=== PATIENT | female | born 1960 | race African-American/Black ===

== ENCOUNTER 2021-05-17 19:55 | Emergency (ER) | payer MEDICARE, OTHER ==
[~2021-05-17] VITALS: Ht 149.9 cm; Wt 115.7 kg
[2021-05-17 19:59] VITALS: BP 168/79
[2021-05-17 21:03] LABS: Urine Bacteria NONE SEEN /hpf (None Seen); Urine Blood 2+ /uL (Negative); Urine Specific Gravity 1.018 (1.001-1.035); Urine WBC 1 /hpf (0 - 5)
[2021-05-17 21:18] LABS: Basophils # (auto) 0.1 10 ^3/uL (0-0.2); Eosinophils # (auto) 0.1 10 ^3/uL (0-0.8); Eosinophils % (auto) 1.5 % (0.0-7.0); Monocytes # (auto) 0.5 10 ^3/uL (0-1.3); White Blood Cell 8.8 10^3/uL (4.4-10.8)
[2021-05-17 21:20] LABS: Basophils % (auto) 0.7 % (0.0-2.0); Hemoglobin 12.9 g/dL (12.2-16.2); Lymphocytes # (auto) 4.8 10 ^3/uL (0.4-5.4); Lymphocytes % (auto) 54.3 % (10.0-50.0); Mean Corpuscular Hemoglobin 26.4 pg (28.0-32.0); Mean Corpuscular Hgb Conc. 32.9 g/dL (32.0-36.0); Mean Corpuscular Volume 80.2 fL (80.0-100.0); Monocytes % (auto) 5.9 % (0.0-12.0); Neutrophils # (auto) 3.3 10 ^3/uL (1.6-8.6); Neutrophils % (auto) 37.6 % (37.0-80.0); Nucleated Red Blood Cells % 0.2 %; Red Blood Cells 4.87 10^6/uL (4.0-5.20); Red Cell Distribution Width 13.9 % (11.8-14.3)
[2021-05-17 21:32] LABS: Albumin 3.9 g/dL (3.4-5.0); Calcium 9.4 mg/dL (8.5-10.1); Potassium 3.3 mmol/L (3.5-5.1)
[2021-05-17 21:39] LABS: BUN/Creatinine Ratio 10.1; Bilirubin, Total 0.3 mg/dL (0.2-1.0); Total Protein 7.8 g/dL (6.4-8.2)
[2021-05-17] MEDS ORDERED: SODIUM CHLORIDE 0.9% 500 ML IV ONE (23:00)
[2021-05-17] MEDS ORDERED: HYDROcodone-ACET 5/325MG TAB PO ONE (23:00)
[2021-05-17] MEDS ORDERED: HYDR-4902 PO (23:02)
== END 2021-05-17 23:50 | disposition home or self-care (01) ==
LOC: ER 19:59
DX: R16.0 Hepatomegaly, not elsewhere classified (principal); R10.31 Right lower quadrant pain; Z90.49 Acquired absence of other specified parts of digestive tract; E78.5 Hyperlipidemia, unspecified; I10 Essential (primary) hypertension
CPT/HCPCS: 36415; 74176; 80053; 81001; 85025

== ENCOUNTER 2021-12-28 01:20 | Emergency (ER) | payer MEDICARE, MEDICAID, OTHER ==
[~2021-12-28] VITALS: Ht 149.9 cm; Wt 113.4 kg
[~2021-12-28 01:20] MED LIST: HYDR-4902 PO
[2021-12-28 05:31] VITALS: BP 161/90
[2021-12-28] MEDS ORDERED: IBUP800T26 PO (05:55)
[2021-12-28] MEDS ORDERED: BACDST PO (05:55)
== END 2021-12-28 06:34 | disposition home or self-care (01) ==
LOC: ER 01:25
DX: L02.214 Cutaneous abscess of groin (principal); L73.1 Pseudofolliculitis barbae; E78.5 Hyperlipidemia, unspecified; I10 Essential (primary) hypertension; Z90.49 Acquired absence of other specified parts of digestive tract

== ENCOUNTER 2023-02-26 06:25 | Emergency (ER) | payer MEDICARE, MEDICAID ==
[~2023-02-26] VITALS: Ht 149.9 cm; Wt 113.5 kg
[~2023-02-26 06:25] MED LIST changes: +BACDST PO; +IBUP-1455 PO
[2023-02-26 07:51] VITALS: BP 154/78; PULSE 99; RESP 18; TEMP 97.3; O2SAT 98
[2023-02-26] MEDS ORDERED: [UNRECOGNIZED DRUG - CODE] OR (08:17)
[2023-02-26] MEDS ORDERED: BENZ100C97 PO (08:17)
[2023-02-26] MEDS ORDERED: SIMV20TA20 PO (08:17)
[2023-02-26] MEDS ORDERED: LOSA50TA46 PO (08:17)
== END 2023-02-26 08:26 | disposition home or self-care (01) ==
LOC: ER 06:25
DX: J40 Bronchitis, not specified as acute or chronic (principal); E78.5 Hyperlipidemia, unspecified; I10 Essential (primary) hypertension; Z90.49 Acquired absence of other specified parts of digestive tract

== ENCOUNTER 2023-03-06 23:27 | Inpatient (IN) | payer MEDICARE, MEDICAID ==
[~2023-03-06] VITALS: Ht 149.9 cm; Wt 115.0 kg
[~2023-03-06 23:27] MED LIST changes: +BENZ100C97 PO; +LOSA50TA46 PO; +SIMV20TA20 PO; +[UNRECOGNIZED DRUG - CODE] OR
[2023-03-07] MEDS ORDERED: ACETAMINOPHEN 325 MG TAB PO ONE (00:15)
[2023-03-07 00:52] LABS: Rapid Influenza A Negative (Negative); Rapid Influenza B Negative (Negative)
[2023-03-07 00:53] LABS: COVID19 ANTIGEN SOFIA FIA POSITIVE (NEGATIVE)
[2023-03-07 00:54] LABS: Urine Bacteria NONE SEEN /hpf (None Seen); Urine Blood 2+ /uL (Negative); Urine Clarity Clear (Clear); Urine Color Colorless (Yellow); Urine Protein, UAD Negative (Negative); Urine Specific Gravity 1.005 (1.001-1.035); Urine Urobilinogen Normal (Negative); Urine WBC 2 /hpf (0 - 5); Urine pH 6.5 (5.0-8.0)
[2023-03-07] MEDS ORDERED: DexAMETHasone SOD PHOS 10MG/1ML VIAL INJ IV ONE (01:00)
[2023-03-07] MEDS ORDERED: LACTATED RINGER'S 2,000 ML IV ONE (01:00)
[2023-03-07 01:06] LABS: Basophils # (auto) 0.1 10 ^3/uL (0-0.2); Basophils % (auto) 0.6 % (0.0-2.0); Eosinophils # (auto) 0.1 10 ^3/uL (0-0.8); Hemoglobin 12.8 g/dL (12.2-16.2); Monocytes # (auto) 0.6 10 ^3/uL (0-1.3); Neutrophils # (auto) 5.9 10 ^3/uL (1.6-8.6); White Blood Cell 8.7 10^3/uL (4.4-10.8)
[2023-03-07 01:09] LABS: Mean Corpuscular Hemoglobin 26.7 pg (28.0-32.0); Mean Corpuscular Hgb Conc. 32.8 g/dL (32.0-36.0); Mean Corpuscular Volume 81.3 fL (80.0-100.0); Monocytes % (auto) 6.8 % (0.0-12.0); Neutrophils % (auto) 68.6 % (37.0-80.0); Red Cell Distribution Width 14.3 % (11.8-14.3)
[2023-03-07 01:25] LABS: Alanine Aminotransferase 22 U/L (7-40); Albumin 4.7 g/dL (3.2-4.8); Alkaline Phosphatase 90 U/L (46-116); Anion Gap 7 (5-15); Aspartate Aminotransferase 19 U/L (13-40); BUN/Creatinine Ratio 6.7 (10.0-20.0); Bilirubin, Total 0.2 mg/dL (0.2-1.0); Blood Urea Nitrogen 5 mg/dL (9-23); Calcium 9.3 mg/dL (8.7-10.4); Carbon Dioxide 27 mmol/L (20-30); Chloride 104 mmol/L (98-107); Glucose 112 mg/dL (74-106); Potassium 3.4 mmol/L (3.5-5.1); Sodium 138 mmol/L (136-145); Total Protein 8.2 g/dL (5.7-8.2)
[2023-03-07 03:14] VITALS: PULSE 110; RESP 19; O2SAT 98
[2023-03-07] MEDS ORDERED: MORPHINE SULFATE INJ 2 MG/ml SYRG IV PRN (08:45)
[2023-03-07] MEDS ORDERED: REMDESIVIR PER PHARMACY 0 ML IV SCH (08:45)
[2023-03-07] MEDS ORDERED: BENZONATATE 100 MG PO PRN (08:45)
[2023-03-07] MEDS ORDERED: NITROGLYCERIN 0.4 MG SL TAB SL PRN (08:45)
[2023-03-07] MEDS ORDERED: ALBUTEROL SULF HFA 90MCG INH 200DOSE IN PRN (08:45)
[2023-03-07] MEDS ORDERED: POTASSIUM EFFERVESENT TAB 25 MEQ PO ONE (08:45)
[2023-03-07] MEDS ORDERED: guaiFENesin-DM 100/10mg/5ml SYR PO PRN (09:15)
[2023-03-07] MEDS: SODIUM CHLORIDE 0.9% 1,000 ML IV SCH ×2 (09:32→22:05)
[2023-03-07 09:35] LABS: Basophils # (auto) 0 10 ^3/uL (0-0.2); Eosinophils # (auto) 0 10 ^3/uL (0-0.8); Mean Corpuscular Hemoglobin 26.9 pg (28.0-32.0); Monocytes # (auto) 0.1 10 ^3/uL (0-1.3); Red Blood Cells 4.82 10^6/uL (4.0-5.20)
[2023-03-07 09:37] LABS: Basophils % (auto) 0.3 % (0.0-2.0); Hematocrit 39.3 % (36.0-46.0); Hemoglobin 12.9 g/dL (12.2-16.2); Lymphocytes % (auto) 8.8 % (10.0-50.0); Mean Corpuscular Hgb Conc. 32.9 g/dL (32.0-36.0); Mean Corpuscular Volume 81.7 fL (80.0-100.0); Monocytes % (auto) 1.1 % (0.0-12.0); Neutrophils # (auto) 10.3 10 ^3/uL (1.6-8.6); Neutrophils % (auto) 89.8 % (37.0-80.0); White Blood Cell 11.5 10^3/uL (4.4-10.8)
[2023-03-07] MEDS: ENOXAPARIN SOD 60 MG/0.6 ML SYRINGE SC SCH ×2 (09:37→22:05)
[2023-03-07] MEDS: ZINC SULFATE 220mg CAP or TAB PO SCH (09:38)
[2023-03-07] MEDS: LOSARTAN POTASSIUM 50 MG TAB PO SCH (09:44)
[2023-03-07] MEDS ORDERED: CHOLECALCIFEROL (VITD3) 2,000 UNIT CAP/TAB PO SCH (10:00)
[2023-03-07] MEDS: BUDESONIDE (INHALATION) 180 MCG IH IN SCH ×2 (10:00→21:40)
[2023-03-07] MEDS ORDERED: ASCORBIC ACID 1,000 MG TAB PO SCH (10:00)
[2023-03-07] MEDS ORDERED: DexAMETHasone SOD PHOS 10MG/1ML VIAL INJ IV SCH (10:00)
[2023-03-07 10:07] LABS: Alanine Aminotransferase 23 U/L (7-40); Albumin 4.8 g/dL (3.2-4.8); Alkaline Phosphatase 83 U/L (46-116); Anion Gap 9 (5-15); Aspartate Aminotransferase 24 U/L (13-40); Calcium 9.6 mg/dL (8.5-10.1); Carbon Dioxide 25 mmol/L (20-30); Chloride 103 mmol/L (98-107); Cholesterol 165 mg/dL (< 200); Glucose 138 mg/dL (74-106); LDL Cholesterol 112 mg/dL (< 100); Sodium 137 mmol/L (136-145); Triglycerides 70 mg/dL (< 150)
[2023-03-07 10:08] LABS: Bilirubin, Total 0.4 mg/dL (0.2-1.0); HDL Cholesterol 46 mg/dL (40-59); Total Protein 8.4 g/dL (5.7-8.2)
[2023-03-07 10:12] LABS: BUN/Creatinine Ratio 7.5 (10.0-20.0); Blood Urea Nitrogen < 5 mg/dL (9-23); Lactic Acid w/Reflex 2.4 mmol/L (0.4-2.0)
[2023-03-07 10:15] LABS: CRP High Sensitivity 2.57 mg/dL (<1.0)
[2023-03-07 10:43] LABS: Thyroid Stimulating Hormone 0.35 uIU/mL (0.358-3.74)
[2023-03-07 10:57] LABS: Magnesium 1.9 mg/dL (1.6-2.6)
[2023-03-07] MEDS ORDERED: REMDESIVIR 200 MG in NS 210ml LOADING DOSE ADULT IV ONE ×2 (12:00→13:00)
[2023-03-07] MEDS ORDERED: SODIUM CHLORIDE 0.9% 2,000 ML IV ONE (12:15)
[2023-03-07] MEDS: ACETAMINOPHEN 500 MG TAB PO PRN (12:49)
[2023-03-07] MEDS ORDERED: ATORVASTATIN 20 MG TAB PO SCH (18:00)
[2023-03-07 19:25] VITALS: PULSE 91; RESP 20; O2SAT 97
[2023-03-07 20:57] LABS: Urine Bacteria NONE SEEN /hpf (None Seen); Urine Blood 2+ /uL (Negative); Urine Clarity Clear (Clear); Urine Color Colorless (Yellow); Urine Protein, UAD Negative (Negative); Urine Specific Gravity 1.007 (1.001-1.035); Urine Urobilinogen Normal (Negative); Urine WBC 1 /hpf (0 - 5)
[2023-03-07 21:40] VITALS: PULSE 88; RESP 18; O2SAT 98
[2023-03-07 21:42] VITALS: O2SAT 98
[2023-03-08 03:16] VITALS: BP 121/73; PULSE 75; RESP 20; TEMP 98; O2SAT 94
[2023-03-08 05:16] LABS: Basophils # (auto) 0 10 ^3/uL (0-0.2); Eosinophils # (auto) 0 10 ^3/uL (0-0.8); Hemoglobin 11.5 g/dL (12.2-16.2); Lymphocytes # (auto) 1.7 10 ^3/uL (0.4-5.4)
[2023-03-08 05:19] LABS: Basophils % (auto) 0.2 % (0.0-2.0); Hematocrit 35.2 % (36.0-46.0); Lymphocytes % (auto) 18.6 % (10.0-50.0); Mean Corpuscular Hemoglobin 26.6 pg (28.0-32.0); Mean Corpuscular Hgb Conc. 32.8 g/dL (32.0-36.0); Mean Corpuscular Volume 81.2 fL (80.0-100.0); Monocytes # (auto) 0.7 10 ^3/uL (0-1.3); Monocytes % (auto) 8.2 % (0.0-12.0); Neutrophils # (auto) 6.6 10 ^3/uL (1.6-8.6); Red Blood Cells 4.33 10^6/uL (4.0-5.20); Red Cell Distribution Width 14.3 % (11.8-14.3)
[2023-03-08 05:44] LABS: Alanine Aminotransferase 22 U/L (7-40); Albumin 4.2 g/dL (3.2-4.8); Alkaline Phosphatase 70 U/L (46-116); Anion Gap 9 (5-15); Aspartate Aminotransferase 17 U/L (13-40); BUN/Creatinine Ratio 13.6 (10.0-20.0); Bilirubin, Total 0.2 mg/dL (0.2-1.0); Blood Urea Nitrogen 9 mg/dL (9-23); Calcium 8.9 mg/dL (8.7-10.4); Carbon Dioxide 25 mmol/L (20-30); Chloride 106 mmol/L (98-107); Glucose 116 mg/dL (74-106); Potassium 3.8 mmol/L (3.5-5.1); Sodium 140 mmol/L (136-145); Total Protein 7.3 g/dL (5.7-8.2)
[2023-03-08 07:40] VITALS: RESP 20; O2SAT 97
[2023-03-08] MEDS: ACETAMINOPHEN 500 MG TAB PO PRN (08:31)
[2023-03-08] MEDS ORDERED: ACETAMINOPHEN 500 MG TAB PO PRN (10:45)
[2023-03-08] MEDS ORDERED: ENOXAPARIN SOD 60 MG/0.6 ML SYRINGE SC SCH (11:09)
[2023-03-08 11:12] LABS: Free T3 2.05 pg/mL (2.3-4.2); Free T4 (Free Thyroxine) 0.79 ng/dL (0.89-1.76)
[2023-03-08] MEDS: LOSARTAN POTASSIUM 50 MG TAB PO SCH (11:12)
[2023-03-08] MEDS: ZINC SULFATE 220mg CAP or TAB PO SCH (11:13)
[2023-03-08] MEDS ORDERED: amLODIPine BESYLATE 5 MG TAB PO ONE (11:15)
[2023-03-08 12:00] VITALS: BP 120/76; PULSE 88; RESP 22
[2023-03-08 12:28] VITALS: O2SAT 97
[2023-03-08] MEDS ORDERED: REMDESIVIR 100mg 100 MG in SODIUM CHL 0.9% 230 ML IV SCH ×4 (15:00)
[2023-03-08] MEDS ORDERED: ATORVASTATIN 20 MG TAB PO SCH (18:00)
[2023-03-09] MEDS ORDERED: ASCORBIC ACID 500 MG TAB PO SCH (10:00)
[2023-03-09] MEDS ORDERED: amLODIPine BESYLATE 5 MG TAB PO SCH (10:00)
[2023-03-09] MEDS ORDERED: ENOXAPARIN SOD 60 MG/0.6 ML SYRINGE SC ONE (10:00)
[2023-03-09] MEDS ORDERED: CHOLECALCIFEROL (VITD3) 1,000UNIT=25mCg TAB PO SCH (10:00)
== END 2023-03-08 14:10 | disposition home or self-care (01) | DRG 178 ==
LOC: ER 23:27 → TELE 03-07 08:35
PROVIDERS: ADMIT Internal Medicine Pulmonary Disease; ATTEND Student in an Organized Health Care Education/Training Program
PROC: XW033E5 Introduction of Remdesivir Anti-infective into Peripheral Vein, Percutaneous Approach, New Technology Group 5 (ICD-10-PCS; principal; 2023-03-07)
DX: U07.1 COVID-19 (principal); Z68.43 Body mass index [BMI] 50.0-59.9, adult; E87.6 Hypokalemia; E66.01 Morbid (severe) obesity due to excess calories; E78.5 Hyperlipidemia, unspecified; R73.9 Hyperglycemia, unspecified; M19.90 Unspecified osteoarthritis, unspecified site; F32.A Depression, unspecified; F41.9 Anxiety disorder, unspecified; I10 Essential (primary) hypertension; Z90.49 Acquired absence of other specified parts of digestive tract; Z71.3 Dietary counseling and surveillance; Z23 Encounter for immunization
CPT/HCPCS: 36415; 71045; 71046; 80053; 80061; 81001; 82306; 82728; 83036; 83605; 83615; 83735; 84439; 84443; 84481; 84484; 85025; 85379; 86141; 87040; 87426; 87804; 93005; 94640; G0378; J1100

== ENCOUNTER 2023-03-28 07:48 | Emergency (ER) | payer MEDICARE, MEDICAID ==
[~2023-03-28] VITALS: Ht 149.9 cm; Wt 115.0 kg
[2023-03-28 08:31] VITALS: BP 141/89; PULSE 89; RESP 18; TEMP 97.6; O2SAT 97
[2023-03-28] MEDS ORDERED: LOSA50TA46 PO (08:37)
[2023-03-28] MEDS ORDERED: IBUP-1456 PO (08:37)
== END 2023-03-28 08:53 | disposition home or self-care (01) ==
LOC: ER 07:48
DX: I10 Essential (primary) hypertension (principal); E78.5 Hyperlipidemia, unspecified; Z76.0 Encounter for issue of repeat prescription; Z90.49 Acquired absence of other specified parts of digestive tract; Z79.1 Long term (current) use of non-steroidal anti-inflammatories (NSAID); Z79.899 Other long term (current) drug therapy

== ENCOUNTER 2023-04-30 07:54 | Emergency (ER) | payer MEDICARE, MEDICAID ==
[~2023-04-30] VITALS: Ht 149.9 cm; Wt 114.2 kg
[~2023-04-30 07:54] MED LIST changes: +IBUP-1456 PO
[2023-04-30] MEDS ORDERED: LOSA50TA46 PO (09:18)
[2023-04-30] MEDS ORDERED: IBUP1TAB5 PO (09:18)
[2023-04-30 09:58] VITALS: BP 127/79; PULSE 100; RESP 18; TEMP 97; O2SAT 100
== END 2023-04-30 10:00 | disposition home or self-care (01) ==
LOC: ER 07:54
DX: I10 Essential (primary) hypertension (principal); E78.5 Hyperlipidemia, unspecified; Z76.0 Encounter for issue of repeat prescription; Z90.49 Acquired absence of other specified parts of digestive tract

== ENCOUNTER 2023-07-03 07:26 | Emergency (ER) | payer MEDICARE, MEDICAID ==
[~2023-07-03] VITALS: Ht 167.6 cm; Wt 83.2 kg
[~2023-07-03 07:26] MED LIST changes: +IBUP1TAB5 PO
[2023-07-03 07:49] VITALS: BP 157/74; PULSE 75; RESP 18; TEMP 97.7; O2SAT 98
[2023-07-03] MEDS ORDERED: IBUP-1456 PO (07:59)
[2023-07-03] MEDS ORDERED: SIMV20TA20 PO (07:59)
[2023-07-03] MEDS ORDERED: LOSA50TA46 PO (07:59)
== END 2023-07-03 08:06 | disposition home or self-care (01) ==
LOC: ER 07:26
DX: I10 Essential (primary) hypertension (principal); E78.5 Hyperlipidemia, unspecified; Z76.0 Encounter for issue of repeat prescription; Z90.49 Acquired absence of other specified parts of digestive tract

== ENCOUNTER 2024-04-24 06:39 | Emergency (ER) | payer MEDICARE, MEDICAID ==
[~2024-04-24] VITALS: Ht 149.9 cm; Wt 118.1 kg
[~2024-04-24 06:39] MED LIST changes: +LOSA-534 PO; -LOSA50TA46 PO
--- NOTE | 2024-04-24 06:52 | ED.PDOC ---
SOB-HPI HPI Comments 63 YEAR OLD FEMALE PRESENTS TO THE ED WITH CHIEF COMPLAINT OF FLU-LIKE ILLNESS. PATIENT REPORTS THAT SHE HAS BEEN EXPERIENCING A PRODUCTIVE YELLOW COUGH FOR WITH ASSOCIATED NASAL CONGESTION AND SORE THROAT FOR THE PAST 6 DAYS. PATIENT DENIES ANY FEVER, CHILLS, HEADACHE, CHEST PAIN, SOB, OR N/V/D. Chief Complaint: Flu like Time Seen by MD: 06:49 Primary Care Provider: NONE Reviewed notes: Nurses Notes, Medications, Allergies Information Source: Patient Mode of Arrival: Ambulatory Severity: Moderate Timing: Days Duration: Since onset Context: At Rest PE Risk Factors: None History of: None Prehospital treatment: None Modifying Factors: Nothing Associated Signs and Symptoms: Cough, Nasal Congestion, Sore Throat If cough with SOB: Productive, Yellow Past Medical History PAST MEDICAL HISTORY: Anxiety, Arthritis, Depression, Gallstones, High Lipids, HTN Surgical History: Cholecystectomy, Hernia Repair SEWER HAND History: No Pertinent SEWER HAND History Family History Family History: Reviewed,noncontributory to illness, No family hx of Cancer, No family hx of DM, No family hx of Heart jasson, No family hx of HTN, No family hx ofKidney jasson, No family hx of Liver jasson, No family hx of Lung jasson, No family hx of Stroke Social History Smoker: Non-Smoker Alcohol: Denies ETOH Use Drugs: Denies Drug Use Lives In: Home Constitutional: denies: chills, diaphoresis, fatigue, fever, malaise, sweats, weakness, others EENTM: reports: nose congestion, throat pain, throat swelling; denies: blurred vision, double vision, ear bleeding, ear discharge, ear drainage, ear pain, ear ringing, eye pain, eye redness, hearing loss, mouth pain, mouth swelling, nasal discharge, nose bleeding, nose pain, photophobia, tearing, voice changes, others Respiratory: reports: cough; denies: hemoptysis, orthopnea, SOB at rest, shortness of breath, SOB with excertion, stridor, wheezing, others Cardiovascular: denies: chest pain, dizzy spells, diaphoresis, Dyspnea on exertion, edema, irregular heart beat, left arm pain, lightheadedness, palpitations, PND, syncope, others Gastrointestinal: denies: abdomen distended, abdominal pain, blood streaked bowels, constipated, diarrhea, dysphagia, difficulty swallowing, hematemesis, melena, nausea, poor appetite, poor fluid intake, rectal bleeding, rectal pain, vomiting, others Genitourinary: denies: abnormal vagina bleeding, burning, dyspareunia, dysuria, flank pain, frequency, hematuria, incontinence, pain, , vagina discharge, urgency, others Neurological: denies: dizziness, fainting, headache, left sided numbness, left sided weakness, numbness, paresthesia, pre-existing deficit, right sided numbness, right sided weakness, seizure, speech problems, tingling, tremors, weakness, others Musculoskeletal: denies: back pain, gout, joint pain, joint swelling, muscle pain, muscle stiffness, neck pain, others Integumetry: denies: bruises, change in color, change in hair/nails, dryness, laceration, lesions, lumps, rash, wounds, others Allergic/Immunocompromised: denies: Difficulty Healing, Frequent Infections, Hives, Itching, others Hematologic/Lymphatic: denies: anemia, blood clots, easy bleeding, easy bruising, swollen glands, others Endocrine: denies: excessive hunger, excessive sweating, excessive thirst, excessive urination, flushing, intolerance to cold, intolerance to heat, unexplained weight gain, unexplained weight loss, others Psychiatric: denies: anxiety, bipolar disorder, depression, hopeless, panic disorder, schizophrenia, sleepless, suicidal, others All Other Systems: Reviewed and Negative Physical Exam General Appearance: No Apparent Distress, Normal HEENT: PERRL/EOMI, Pharyngeal Erythema (TONSILLAR SWELLING, NO EXUDATES. ), TMs Normal Neck: Full Range of Motion, Non-Tender, Normal, Normal Inspection Respiratory: Chest Non-Tender, Expiration, No Accessory Muscle Use, No Respiratory Distress, Rhonchi Cardiovascular: No Edema, No JVD, No Murmur, No Gallop, Normal Peripheral Pulses, Regular Rate/Rhythm Breast Exam: Deferred Gastrointestinal: No Organomegaly, Non Tender, No Pulsatile Mass, Normal Bowel Sounds, Soft Genitalia: Deferred Pelvic: Deferred Rectal: Deferred Extremities: No calf tenderness, Normal capillary refill, Normal inspection, Normal range of motion, Non-tender, No pedal edema Musculoskeletal : Apperance: Normal Neurologic: Alert, materials planning manager II-XII nml as Tested, No Motor Deficits, Normal Affect, Normal Mood, No Sensory Deficits Cerebellar Function: Normal Reflexes: Normal Skin: Dry, Normal Color, Warm Peripheral Pulses: 2+ carotid (R), 2+ carotid (L) Lymphatic: No Adenopathy Was a procedure done? Was a procedure done?: No Differential Dx Differential Diagnosis: Bronchitis, Pneumonia, Sinusitis, Allergic Rhinitis, Pharyngitis X-Ray, Labs, Meds, VS Vital Signs Date Time Temp Pulse Resp B/P (MAP) Pulse Ox O2 Delivery O2 Flow Rate FiO2 04/24/24 06:47 98.0 93 16 139/88 (105) 98 X-Ray, Labs, Meds, VS Comment - I reviewed the following notes from patient's past medical encounters: 07/03/23 FOR HTN - The following tests were ordered, and results were reviewed by me: CHEST XR - I reviewed and agreed with the following test results read by other provider: CHEST XR - I discussed treatments and results with medical personnel. CHEST XR: MY INTERPRETATION, NO INFILTRATES OR CONSOLIDATIONS NOTED. NO ACUTE CARDIOPULMONARY DISEASE. PENDING READING FROM RADIOLOGIST. TREATMENT: ROCEPHIN 1GM IM Time of 1ST Reevaluation: 08:20 Reevaluation 1ST: Improved Patient Education/Counseling: Diagnosis, Treatment, Need For Follow Up Family Education/Counseling: Diagnosis, Treatment, Need For Follow Up Medical Screening: No EMC Exist At This Time Departure 1 Departure Time of Disposition: 08:20 Impression: Primary Impression: Acute bronchitis Qualified Codes: J20.9 - Acute bronchitis, unspecified Additional Impression: Acute tonsillitis Qualified Codes: J03.90 - Acute tonsillitis, unspecified Disposition: HOME / SELF CARE / HOMELESS Condition: Stable Additional Instructions: FOLLOW UP WITH PCP WITHIN 2-3 DAYS. IF CONDITION BECOME WORSE, RETURN TO ED AMY. e-Prescriptions Albuterol Sulfate (Albuterol Sulfate Hfa) 108 Mcg/Act Aer 108 MCG IN TID, #120 AER Prov: ZACHARY HOBBS 04/24/24 Promethazine-Dm (Promethazine Dm 6.25-15 mg/5Ml) 1 Ivy Ivy 5 ML PO TID, #180 ML Prov: ZACHARY HOBBS 04/24/24 Azithromycin (Azithromycin) 500 Mg Tab 1 TAB PO DAILY, #5 TAB Prov: ZACHARY HOBBS 04/24/24 Discharged With: Self Critical Care Note Critical Care Time?: No Stability Stability form required: No Heart Score Heart Score: Heart Score Response (Comments) Value History N/A 0 EKG N/A 0 Age N/A 0 Risk Factors N/A 0 Troponin N/A 0 Total 0 I personally scribed for ZACHARY HOBBS ([email or web address]) on 04/24/24 at 06:51. Electronically submitted by Darrick Rashid ([email or web address]). I personally scribed for ZACHARY HOBBS ([email or web address]) on 04/24/24 at 06:59. Electronically submitted by Darrick Rashid ([email or web address]). I personally scribed for ZACHARY HOBBS ([email or web address]) on 04/24/24 at 07:40. Electronically submitted by Darrick Rashid ([email or web address]). ZACHARY HOBBS Apr 24, 2024 06:51
[2024-04-24] MEDS ORDERED: ALBU108A5 IN (07:50)
[2024-04-24] MEDS ORDERED: PROM1SOL4 PO (07:50)
[2024-04-24] MEDS ORDERED: AZIT500T66 PO (07:50)
[2024-04-24 07:54] VITALS: BP 162/95; TEMP 98.1
--- NOTE | 2024-04-24 07:55 | DVH ---
CHEST RADIOGRAPH Indication: COUGH Technique: Frontal and lateral view of the chest was obtained Comparison: XY CHEST TWO VIEWS ROUTINE on DOS: 03/07/23 FINDINGS: Lines and Tubes: None Lungs: Mild congestion Pleura: No effusion. No pneumothorax. Cardiomediastinal contours: Unremarkable Bones: Unremarkable IMPRESSION: Mild congestion
[2024-04-24 07:57] VITALS: PULSE 90; RESP 16; O2SAT 99
[2024-04-24] MEDS: cefTRIAXone SOD 1,000 MG VL IM ONE (07:59)
[2024-04-24] MEDS: LIDOCAINE 1% HCL (LOCAL ANESTH.) INJ 20ML MDV IJ ONE (08:02)
== END 2024-04-24 08:00 | disposition home or self-care (01) ==
LOC: ER 06:39
DX: J20.9 Acute bronchitis, unspecified (principal); J03.90 Acute tonsillitis, unspecified; I10 Essential (primary) hypertension; M19.90 Unspecified osteoarthritis, unspecified site; Z90.49 Acquired absence of other specified parts of digestive tract; Z98.890 Other specified postprocedural states
CPT/HCPCS: 71046; 96372; 99283; J0696; J2003

== ENCOUNTER 2024-06-26 20:57 | Emergency (ER) | payer MEDICARE, MEDICAID ==
[~2024-06-26] VITALS: Ht 149.9 cm; Wt 113.4 kg
[~2024-06-26 20:57] MED LIST changes: +ALBU108A5 IN; +AZIT500T66 PO; +PROM1SOL4 PO
--- NOTE | 2024-06-26 21:19 | ED.PDOC ---
History of Present Illness HPI Comments 64-year-old female came to emergency room due to chest pains. Patient has history of hypertension and anxiety, for the past 4 days, she has been having intermittent episodes of left-sided chest pains, tight, non radiating, in associated with tingling of the right side of the face. Noted symptoms appeared to occur whenever patient feels stressed or upset. Denies any shortness of breath Chief Complaint: Chest Pain Time Seen by MD: 21:18 Primary Care Provider: NONE Reviewed Notes: Nurses Notes Allergies: Coded Allergies: NO KNOWN ALLERGIES (Unverified , 12/28/21) Home Meds Active Scripts Albuterol Sulfate (Albuterol Sulfate Hfa) 108 Mcg/Act Aer, 108 MCG IN TID, #120 AER Prov:ZACHARY HOBBS 04/24/24 Promethazine-Dm (Promethazine Dm 6.25-15 mg/5Ml) 1 Ivy Ivy, 5 ML PO TID, #180 ML Prov:ZACHARY HOBBS 04/24/24 Azithromycin (Azithromycin) 500 Mg Tab, 1 TAB PO DAILY, #5 TAB Prov:ZACHARY HOBBS 04/24/24 Simvastatin (Simvastatin) 20 Mg Tab, 1 TAB PO QPM, #90 TAB 1 Refill Prov:LUDIN HAHNP 07/03/23 Ibuprofen (Ibuprofen) 800 Mg Tab, 1 TAB PO TID, #90 TAB Prov:LUDIN HAHNP 07/03/23 Losartan Potassium (Losartan Potassium) 50 Mg Tab, 1 TAB PO DAILY, #90 TAB 5 Refills Prov:LUDIN HAHNP 07/03/23 Ibuprofen Micronized (Ibuprofen) 600 Mg Tab, 600 MG PO TIDPRN PRN for 30 Days, #90 TAB 0 Refills Prov:WILNER SIN MANAGER REPORT 04/30/23 Losartan Potassium (Losartan Potassium) 50 Mg Tab, 1 TAB PO DAILY for 60 Days, #60 TAB 0 Refills Prov:WILNER SIN MANAGER REPORT 04/30/23 Losartan Potassium (Losartan Potassium) 50 Mg Tab, 1 TAB PO DAILY, #30 TAB Prov:ZACHARY HOBBS 03/28/23 Ibuprofen (Ibuprofen) 800 Mg Tab, 1 TAB PO TID, #30 TAB Prov:ZACHARY HOBBS 03/28/23 Dextromethorphan-Guaifenesin (Diabetic Tussin Dm) Dm Liq, 10 ML OR Q6HPRN PRN for 7 Days, #280 ML 0 Refills Prov:WILNER SIN MANAGER REPORT 02/26/23 Benzonatate (Benzonatate) 100 Mg Cap, 100 MG PO BIDP PRN for 14 Days, #28 CAP 0 Refills Prov:WILNER SIN MANAGER REPORT 02/26/23 Simvastatin (Simvastatin) 20 Mg Tab, 1 TAB PO QPM for 30 Days, #30 TAB 0 Refills Prov:WILNER SIN MANAGER REPORT 02/26/23 Losartan Potassium (Losartan Potassium) 50 Mg Tab, 1 TAB PO DAILY, #30 TAB 0 Refills Prov:WILNER SIN MANAGER REPORT 02/26/23 Ibuprofen Micronized (Ibuprofen) 800 Mg Tab, 800 MG PO TID PRN, #30 TAB Prov:LUDIN HAHNP 12/28/21 Sulfamethoxazole W/Trimethopri (Bactrim Ds Tablet) 1 Tab Tb, 1 TAB PO BID for 10 Days, #20 TAB Prov:LUDIN HAHNP 12/28/21 Hydrocodone-Acetaminophen (Hydrocodone Bitartrate/AC 5-325 mg) 1 Tab Tab, 1 TAB PO [id number] PRN for 5 Days, #10 TAB Prov:CEE FERREIRA DO 05/17/21 Information Source: Patient Mode of Arrival: Ambulatory Severity: Moderate Review of Systems REVIEW OF SYSTEMS: No fever, no chills, or fatigue HEENT: No sore throat, no earache, no congestion, no neck pain. Cardiac: (+) chest pain. No palpitations. Lungs: No shortness of breath, no cough. GI: No nausea, no vomiting, no diarrhea, no constipation, no abdominal pain : No dysuria, frequency, or urgency. No hematuria. Musculoskeletal: No joint pain , no joint swelling, no extremity edema. Skin: No rash, no itching. Neuro: No headache, no dizziness, no weakness (+) anxiety (+) right facial numbness Vital Signs Vital Signs Date Time Temp Pulse Resp B/P (MAP) Pulse Ox O2 Delivery O2 Flow Rate FiO2 06/27/24 00:20 98.7 90 16 139/64 (89) 96 98.7 06/27/24 00:20 Room Air Physical Exam General: Awake, alert and oriented. No acute distress. Skin: Skin in warm, dry and intact. Appropriate color for ethnicity. Nailbeds pink with no cyanosis. HEENT: The head is normocephalic and atraumatic. Conjunctivae are clear without exudates or hemorrhage. Sclera is non-icteric. EOM are intact. No signs of nystagmus. Eyelids are normal in appearance without swelling or lesions. Oral mucosa is pink and moist Neck: The neck is supple with normal range of motion. No JVD. Cardiac: Heart rate and rhythm are normal. No murmurs, gallops, or rubs are auscultated. Respiratory: No signs of respiratory distress. Lung sounds are clear in all lobes bilaterally without rales, ronchi, or wheezes. Abdominal: Abdomen is soft, non-tender without distention. Bowel sounds are present and normoactive in all four quadrants. Extremities: Upper and lower extremities are atraumatic in appearance without deformity or edema. Neurological: The patient is awake, alert and oriented to person, place, and time with normal speech. Speech is clear. There is no facial asymmetry. Psychiatric: Appropriate mood and affect. Good judgement and insight. No visual or auditory hallucinations. Past Medical History PAST MEDICAL HISTORY: Anxiety, Arthritis, Depression, HTN Surgical History: Cholecystectomy, Hernia Repair SOCIAL SERVICES MANAGER History: No Pertinent SOCIAL SERVICES MANAGER History Family History Family History: Reviewed,noncontributory to illness Social History Smoker: Non-Smoker Alcohol: Denies ETOH Use Drugs: Denies Drug Use Lives In: Home Was a procedure done? Was a procedure done?: No EKG EKG : Pulse Rate (adult): 109 Cardiac Rhythm: ST Comments Minimal ST depression, inferior leads Differential Dx Considerations may include: Anemia, electrolyte imbalance, anxiety, coronary artery disease, TIA X-Ray, Labs, Meds, VS Vital Signs Date Time Temp Pulse Resp B/P (MAP) Pulse Ox O2 Delivery O2 Flow Rate FiO2 06/27/24 00:20 98.7 90 16 139/64 (89) 96 98.7 06/27/24 00:20 90 16 96 Room Air 06/26/24 21:23 109 06/26/24 21:19 109 06/26/24 21:00 98.0 107 16 152/89 (110) 98 Lab Test 06/26/24 21:50 06/26/24 21:09 06/26/24 21:02 Range/Units Troponin I High Sensitivity < 3 L 3 L </=34 ng/L Urine Color Light-yellow Yellow Urine Clarity Clear Clear Urine pH 6.5 5.0-9.0 Urine Specific [place] 1.013 1.001-1.035 Urine Protein Negative Negative Urine Ketones Negative Negative Urine Blood 2+ H Negative /uL Urine Nitrite Negative Negative Urine Bilirubin Negative Negative Urine Urobilinogen Normal Negative mg/dL Urine Leukocyte Esterase Negative Negative /uL Urine RBC 19 0 - 4 /hpf Urine Microscopic WBC < 1 0-5 /HPF Urine Squamous Epithelial Cells Few <5 /hpf Urine Bacteria None seen None Seen /hpf Urine Glucose Normal Normal mg/dL White Blood Count 10.5 4.4-10.8 10^3/uL Red Blood Count 5.19 4.0-5.20 10^6/uL Hemoglobin 13.6 12.2-16.2 g/dL Hematocrit 42.3 36.0-46.0 % Mean Corpuscular Volume 81.6 80.0-100.0 fL Mean Corpuscular Hemoglobin 26.2 L 28.0-32.0 pg Mean Corpuscular Hemoglobin Concent 32.1 32.0-36.0 g/dL Red Cell Distribution Width 14.2 11.8-14.3 % Platelet Count 326 140-450 10^3/uL Mean Platelet Volume 7.9 6.9-10.8 fL Neutrophils (%) (Auto) 42.2 37.0-80.0 % Lymphocytes (%) (Auto) 49.2 10.0-50.0 % Monocytes (%) (Auto) 5.2 0.0-12.0 % Eosinophils (%) (Auto) 1.8 0.0-7.0 % Basophils (%) (Auto) 1.6 0.0-2.0 % Neutrophils # (Auto) 4.4 1.6-8.6 10 ^3/uL Lymphocytes # (Auto) 5.2 0.4-5.4 10 ^3/uL Monocytes # (Auto) 0.6 0-1.3 10 ^3/uL Eosinophils # (Auto) 0.2 0-0.8 10 ^3/uL Basophils # (Auto) 0.2 0-0.2 10 ^3/uL Nucleated Red Blood Cells 0.0 % Sodium Level 141 136-145 mmol/L Potassium Level 4.0 3.5-5.1 mmol/L Chloride Level 104 98-107 mmol/L Carbon Dioxide Level 30 20-31 mmol/L Anion Gap 7 5-15 Blood Urea Nitrogen 12 9-23 mg/dL Creatinine 0.79 0.550-1.02 mg/dL Glomerular Filtration Rate Calc 85 >90 mL/min BUN/Creatinine Ratio 15.2 10.0-20.0 Serum Glucose 121 H 74-106 mg/dL Calcium Level 10.2 8.7-10.4 mg/dL Total Bilirubin 0.3 0.2-1.0 mg/dL Aspartate Amino Transferase (AST) 29 13-40 U/L Alanine Aminotransferase (ALT) 25 7-40 U/L Alkaline Phosphatase 97 46-116 U/L B-Type Natriuretic Peptide 6.43 0-100 pg/mL Total Protein 7.6 5.7-8.2 g/dL Albumin 4.8 3.2-4.8 g/dL Current Medications Medications (Trade) Dose Ordered Sig/Aleida Route Start Time Stop Time Status Last Admin Aspirin 324 mg ONCE ONCE PO 06/26/24 21:15 06/27/24 00:17 DC 06/27/24 00:19 Acetaminophen (Tylenol Tablet Or Capsule) 1,000 mg ONCE ONCE PO 06/27/24 00:30 06/27/24 00:31 DC 06/27/24 00:39 CHEST RADIOGRAPH Indication: cp Technique: Single frontal view of the chest was obtained Comparison: XY CHEST PORTABLE on DOS: 03/08/23, XY CHEST XRAY 1 VIEW on DOS: 03/07/23 FINDINGS: Lines and Tubes: None Lungs: No focal consolidation. Pleura: No effusion. No pneumothorax. Cardiomediastinal contours: Unremarkable Bones: No acute osseous abnormality. IMPRESSION: 1. No acute cardiopulmonary disease. Time of 1ST Reevaluation: 21:12 Reevaluation 1ST: Unchanged Patient Education/Counseling: Diagnosis, Treatment Family Education/Counseling: No Family Present Departure 1 Departure Time of Disposition: 00:56 Impression: Primary Impression: Chest pain Disposition: 01 HOME / SELF CARE / HOMELESS Condition: Stable Additional Instructions: ED DISCHARGE INSTRUCTIONS Instructions: Please read all instructions provided in this packet carefully. Although you have been discharged from the Emergency Department, this does not mean that you have a "clean bill of health". No definitive diagnosis for your symptoms has been made today. It is possible that you are in the process of developing a serious illness. This is why you must return to the ED without fail if any new or worsening symptoms (especially if your symptoms include worsening chest pain, trouble breathing, abdominal pain, fever, headache, confusion, trouble seeing, or trouble walking) It is also very important that you see a primary care doctor within the next 1-4 days to follow up. If you are unable to get an appointment, return to the ED for re-evaluation. CHEST PAIN EDUCATION There are many things that can cause chest pain. Some are not serious and will get better on their own in a few days. But some kinds of chest pain need more testing and treatment. Your doctor may have recommended a follow-up visit in the next few days. If you are not getting better, you may need more tests or treatment. Even though your doctor has released you, you still need to watch for any problems. The doctor carefully checked you, but sometimes problems can develop later. If you have new symptoms or if your symptoms do not get better, get medical care right away. If you have worse or different chest pain or pressure that lasts more than 5 minutes or you passed out (lost consciousness), call 911 or seek other emergency help right away. A medical visit is only one step in your treatment. Even if you feel better, you still need to do what your doctor recommends, such as going to all suggested follow-up appointments and taking medicines exactly as directed. This will help you recover and help prevent future problems. How can you care for yourself at home? Rest until you feel better. Take your medicine exactly as prescribed. Call your doctor if you think you are having a problem with your medicine. Do not drive after taking a prescription pain medicine. When should you call for help? Call 911 if: You passed out (lost consciousness). You have severe difficulty breathing. You have symptoms of a heart attack. These may include: Chest pain or pressure, or a strange feeling in your chest. Sweating. Shortness of breath. Nausea or vomiting. Pain, pressure, or a strange feeling in your back, neck, jaw, or upper belly or in one or both shoulders or arms. Lightheadedness or sudden weakness. A fast or irregular heartbeat. After you call 911, the pulverizing and sifting operator may tell you to chew 1 adult-strength or 2 to 4 low-dose aspirin. Wait for an ambulance. Do not try to drive yourself. Call your doctor now or seek immediate medical care if: You have any trouble breathing. You have new or different chest pain. You are dizzy or lightheaded, or you feel like you may faint. Watch closely for changes in your health, and be sure to contact your doctor if you do not get better as expected. Current as of: November 20, 2023 Author: [employer] Staff? Comments 64-year-old female with chest pain. EKG negative for signs of ischemia. High sensitivity troponin negative. CXR shows no acute process. D-dimer negative. Presentation not suggestive of acute coronary syndrome, pulmonary embolism or aortic dissection. Patient improved at time of discharge. No hypoxia, respiratory distress or dyspnea at discharge. Patient able to ambulate without difficulty. Extensive evaluation was performed in attempt to identify or rule out: (See differential diagnosis section) The following tests were ordered, and results were reviewed by me: (See diagnostic results section) The following test were independently interpreted by me: EKG, chest x-ray I reviewed and agreed with the following test results read by other providers: Chest x-ray I reviewed the following notes from the pt's past medical encounters: N/A Additional information was gathered from interviewing the following independent historians: N/A Discussion of management or test interpretation with external physician/other qualified health child day care provider: N/A An acute or chronic illness that poses a threat to life or bodily function: Chest pain Decision regarding hospitalization or escalation of hospital level of care: Risks and benefits of admission for further treatment of patient's condition was considered however due to patient's stable condition patient will be discharged to follow up closely or return to care for worsening of condition or inability to follow up. Critical Care Note Critical Care Time?: No Stability Stability form required: No Heart Score Heart Score: Heart Score Response (Comments) Value History Slightly Suspicious 0 EKG Repolarization Disturb 1 Age 45-64 1 Risk Factors 1 or 2 risk factors 1 Troponin Normal limit 0 Total 3 I personally scribed for YADIRA WINSTON MD ([email or web address]) on 06/26/24 at 21:19. Electronically submitted by Cedric Parekh ([email or web address]). I personally scribed for YADIRA WINSTON MD ([email or web address]) on 06/26/24 at 21:45. Electronically submitted by Cedric Parekh ([email or web address]). YADIRA WINSTON MD Jun 26, 2024 21:19
[2024-06-26 21:24] LABS: Basophils # (auto) 0.2 10 ^3/uL (0-0.2); Basophils % (auto) 1.6 % (0.0-2.0); Eosinophils # (auto) 0.2 10 ^3/uL (0-0.8); Eosinophils % (auto) 1.8 % (0.0-7.0); Hematocrit 42.3 % (36.0-46.0); Hemoglobin 13.6 g/dL (12.2-16.2); Lymphocytes # (auto) 5.2 10 ^3/uL (0.4-5.4); Lymphocytes % (auto) 49.2 % (10.0-50.0); Mean Corpuscular Hemoglobin 26.2 pg (28.0-32.0); Mean Corpuscular Hgb Conc. 32.1 g/dL (32.0-36.0); Mean Corpuscular Volume 81.6 fL (80.0-100.0); Monocytes # (auto) 0.6 10 ^3/uL (0-1.3); Monocytes % (auto) 5.2 % (0.0-12.0); Neutrophils # (auto) 4.4 10 ^3/uL (1.6-8.6); Neutrophils % (auto) 42.2 % (37.0-80.0); Platelet Count (auto) 326 10^3/uL (140-450); Red Blood Cells 5.19 10^6/uL (4.0-5.20); Red Cell Distribution Width 14.2 % (11.8-14.3); White Blood Cell 10.5 10^3/uL (4.4-10.8)
--- NOTE | 2024-06-26 21:31 | DVH ---
CHEST RADIOGRAPH Indication: cp Technique: Single frontal view of the chest was obtained Comparison: XY CHEST PORTABLE on DOS: 03/08/23, XY CHEST XRAY 1 VIEW on DOS: 03/07/23 FINDINGS: Lines and Tubes: None Lungs: No focal consolidation. Pleura: No effusion. No pneumothorax. Cardiomediastinal contours: Unremarkable Bones: No acute osseous abnormality. IMPRESSION: 1. No acute cardiopulmonary disease.
[2024-06-26 21:38] LABS: Alanine Aminotransferase 25 U/L (7-40); Albumin 4.8 g/dL (3.2-4.8); Alkaline Phosphatase 97 U/L (46-116); Anion Gap 7 (5-15); Aspartate Aminotransferase 29 U/L (13-40); BUN/Creatinine Ratio 15.2 (10.0-20.0); Blood Urea Nitrogen 12 mg/dL (9-23); Calcium 10.2 mg/dL (8.7-10.4); Carbon Dioxide 30 mmol/L (20-31); Chloride 104 mmol/L (98-107); Sodium 141 mmol/L (136-145); Total Protein 7.6 g/dL (5.7-8.2)
[2024-06-26 21:41] LABS: Bilirubin, Total 0.3 mg/dL (0.2-1.0); Glucose 121 mg/dL (74-106)
[2024-06-26 23:17] LABS: Urine Bacteria None Seen /hpf (None Seen)
[2024-06-26 23:28] LABS: Urine Blood 2+ /uL (Negative); Urine Clarity Clear (Clear); Urine Color Light-Yellow (Yellow); Urine Protein, UAD Negative (Negative); Urine Specific Gravity 1.013 (1.001-1.035); Urine Squamous Epithelial Cell FEW /hpf (<5); Urine Urobilinogen Normal (Negative); Urine WBC < 1 /HPF (0-5); Urine pH 6.5 (5.0-9.0)
[2024-06-27] MEDS: MORPHINE SULFATE INJ 2 MG/ml SYRG IV ONE (00:18)
[2024-06-27] MEDS: ASPirin 81 mg TAB PO ONE (00:19)
[2024-06-27] MEDS: ACETAMINOPHEN 500 MG TAB or CAP PO ONE (00:39)
[2024-06-27 01:00] VITALS: BP 143/55; PULSE 67; RESP 19; TEMP 97.8; O2SAT 97
--- NOTE | 2024-06-28 04:36 | ECG ---
[facility] Test Date: 2024-06-26 Test Time: 21:04:40 Pat Name: NICKIE WEBSTER Department: ER Room: Gender: F Maitre D: LEONILA : 1960 Requested By: YADIRA WINSTON Order Number: [id number] Reading MD: Measurements Intervals [place] Rate: 108 P: 70 WI: 131 QRS: 44 QRSD: 82 T: 89 QT: 330 QTc: 443 Interpretive Statements Sinus tachycardia Minimal ST depression, inferior leads Please click the below link to view image of tracing.
== END 2024-06-27 01:48 | disposition home or self-care (01) ==
LOC: ER 20:57
DX: R07.89 Other chest pain (principal); F41.9 Anxiety disorder, unspecified; M19.90 Unspecified osteoarthritis, unspecified site; F32.9 Major depressive disorder, single episode, unspecified; I10 Essential (primary) hypertension; Z98.890 Other specified postprocedural states; Z90.49 Acquired absence of other specified parts of digestive tract; Z79.899 Other long term (current) drug therapy; Z79.1 Long term (current) use of non-steroidal anti-inflammatories (NSAID)
CPT/HCPCS: 36415; 71045; 80053; 81001; 83880; 84484; 85025; 85379; 93005

== ENCOUNTER 2024-10-13 07:20 | Emergency (ER) | payer MEDICARE, MEDICAID ==
[~2024-10-13] VITALS: Ht 149.9 cm; Wt 117.4 kg
[2024-10-13] MEDS: KETOROLAC TROMETH 60MG/2ML VIAL IM ONE (08:44)
--- NOTE | 2024-10-13 09:10 | ED.PDOC ---
History of Present Illness HPI Comments 64-year-old female presents with a chief complaint of lower back pain x s/p fall on Saturday. Patient states that she had a mechanical fall on Saturday10/09/2024. Reports chair slipped behind her causing her to land on the edge of the chair. Patient is stating that she now has tenderness to her lower left paraspinal lumbar region. Non radiating. Patient is able to ambulate and walk with steady gait. Denies history of chronic steroid use or history of osteoporosis Denies any history of cancer Denies fevers chills night sweats nausea vomiting unintentional weight loss Denies IV drug use history of HIV/TB Denies abdominal "tearing" pain Denies syncope Denies urinary incontinence or urinary changes Denies numbness tingling of the groin or inner thigh Denies previous back procedure or surgery Chief Complaint: Back Pain Time Seen by MD: 08:18 Primary Care Provider: NONE Reviewed Notes: Nurses Notes, Medications, Allergies Allergies: Coded Allergies: NO KNOWN ALLERGIES (Unverified , 12/28/21) Home Meds Active Scripts Albuterol Sulfate (Albuterol Sulfate Hfa) 108 Mcg/Act Aer, 108 MCG IN TID, #120 AER Prov:ZACHARY HOBBS 04/24/24 Promethazine-Dm (Promethazine Dm 6.25-15 mg/5Ml) 1 Ivy Ivy, 5 ML PO TID, #180 ML Prov:ZACHARY HOBBS 04/24/24 Azithromycin (Azithromycin) 500 Mg Tab, 1 TAB PO DAILY, #5 TAB Prov:ZACHARY HOBBS 04/24/24 Simvastatin (Simvastatin) 20 Mg Tab, 1 TAB PO QPM, #90 TAB 1 Refill Prov:LUDIN HAHNP 07/03/23 Ibuprofen (Ibuprofen) 800 Mg Tab, 1 TAB PO TID, #90 TAB Prov:LUDIN HAHNP 07/03/23 Losartan Potassium (Losartan Potassium) 50 Mg Tab, 1 TAB PO DAILY, #90 TAB 5 Refills Prov:LUDIN HAHN STEAMTABLE WORKER 07/03/23 Ibuprofen Micronized (Ibuprofen) 600 Mg Tab, 600 MG PO TIDPRN PRN for 30 Days, #90 TAB 0 Refills Prov:WILNER SIN OCCUPATIONAL PHYSICIAN 04/30/23 Losartan Potassium (Losartan Potassium) 50 Mg Tab, 1 TAB PO DAILY for 60 Days, #60 TAB 0 Refills Prov:WILNER SIN OCCUPATIONAL PHYSICIAN 04/30/23 Losartan Potassium (Losartan Potassium) 50 Mg Tab, 1 TAB PO DAILY, #30 TAB Prov:ANJELKAYLIEERIC FIELDS 03/28/23 Ibuprofen (Ibuprofen) 800 Mg Tab, 1 TAB PO TID, #30 TAB Prov:ZACHARY HOBBS 03/28/23 Dextromethorphan-Guaifenesin (Diabetic Tussin Dm) Dm Liq, 10 ML OR Q6HPRN PRN for 7 Days, #280 ML 0 Refills Prov:WILNER SIN OCCUPATIONAL PHYSICIAN 02/26/23 Benzonatate (Benzonatate) 100 Mg Cap, 100 MG PO BIDP PRN for 14 Days, #28 CAP 0 Refills Prov:WILNER SIN OCCUPATIONAL PHYSICIAN 02/26/23 Simvastatin (Simvastatin) 20 Mg Tab, 1 TAB PO QPM for 30 Days, #30 TAB 0 Refills Prov:WILNER SIN OCCUPATIONAL PHYSICIAN 02/26/23 Losartan Potassium (Losartan Potassium) 50 Mg Tab, 1 TAB PO DAILY, #30 TAB 0 Refills Prov:WILNER SIN OCCUPATIONAL PHYSICIAN 02/26/23 Ibuprofen Micronized (Ibuprofen) 800 Mg Tab, 800 MG PO TID PRN, #30 TAB Prov:LUDIN HAHN 12/28/21 Sulfamethoxazole W/Trimethopri (Bactrim Ds Tablet) 1 Tab Tb, 1 TAB PO BID for 10 Days, #20 TAB Prov:LUDIN HAHN 12/28/21 Hydrocodone-Acetaminophen (Hydrocodone Bitartrate/AC 5-325 mg) 1 Tab Tab, 1 TAB PO [id number] PRN for 5 Days, #10 TAB Prov:CEE FERREIRA DO 05/17/21 Information Source: Patient Mode of Arrival: Ambulatory Severity: Moderate Timing: Days Duration: Since onset Prehospital treatment: None Past Medical History PAST MEDICAL HISTORY: Anxiety, Arthritis, Depression, HTN Surgical History: Cholecystectomy, Hernia Repair METAL AND PLASTIC HEATER History: No Pertinent METAL AND PLASTIC HEATER History Family History Family History: Reviewed,noncontributory to illness Social History Smoker: Non-Smoker Alcohol: Denies ETOH Use Drugs: Denies Drug Use Lives In: Home Constitutional: denies: chills, diaphoresis, fatigue, fever, malaise, sweats, weakness, others EENTM: denies: blurred vision, double vision, ear bleeding, ear discharge, ear drainage, ear pain, ear ringing, eye pain, eye redness, hearing loss, mouth pain, mouth swelling, nasal discharge, nose bleeding, nose congestion, nose pilar n, photophobia, tearing, throat pain, throat swelling, voice changes, others Respiratory: denies: cough, hemoptysis, orthopnea, SOB at rest, shortness of breath, SOB with excertion, stridor, wheezing, others Cardiovascular: denies: chest pain, dizzy spells, diaphoresis, Dyspnea on exertion, edema, irregular heart beat, left arm pain, lightheadedness, palpitations, PND, syncope, others Gastrointestinal: denies: abdomen distended, abdominal pain, blood streaked bowels, constipated, diarrhea, dysphagia, difficulty swallowing, hematemesis, melena, nausea, poor appetite, poor fluid intake, rectal bleeding, rectal pain, vomiting, others Genitourinary: denies: abnormal vagina bleeding, burning, dyspareunia, dysuria, flank pain, frequency, hematuria, incontinence, pain, , vagina discharge, urgency, others Neurological: denies: dizziness, fainting, headache, left sided numbness, left sided weakness, numbness, paresthesia, pre-existing deficit, right sided numbness, right sided weakness, seizure, speech problems, tingling, tremors, weakness, others Musculoskeletal: reports: back pain; denies: gout, joint pain, joint swelling, muscle pain, muscle stiffness, neck pain, others Integumetry: denies: bruises, change in color, change in hair/nails, dryness, laceration, lesions, lumps, rash, wounds, others Allergic/Immunocompromised: denies: Difficulty Healing, Frequent Infections, Hives, Itching, others Hematologic/Lymphatic: denies: anemia, blood clots, easy bleeding, easy bruising, swollen glands, others Endocrine: denies: excessive hunger, excessive sweating, excessive thirst, excessive urination, flushing, intolerance to cold, intolerance to heat, unexplained weight gain, unexplained weight loss, others Psychiatric: denies: anxiety, bipolar disorder, depression, hopeless, panic disorder, schizophrenia, sleepless, suicidal, others All Other Systems: Reviewed and Negative Physical Exam General Appearance: No Apparent Distress, Normal HEENT: Normal ENT Inspection, Pharynx Normal, TMs Normal Neck: Full Range of Motion, Non-Tender, Normal, Normal Inspection Respiratory: Chest Non-Tender, Lungs Clear, No Accessory Muscle Use, No Respiratory Distress, Normal Breath Sounds Cardiovascular: No Edema, No JVD, No Murmur, No Gallop, Normal Peripheral Pulses, Regular Rate/Rhythm Breast Exam: Deferred Gastrointestinal: No Organomegaly, Non Tender, No Pulsatile Mass, Normal Bowel Sounds, Soft Genitalia: Deferred Pelvic: Deferred Rectal: Deferred Extremities: No calf tenderness, Normal capillary refill, Normal inspection, Normal range of motion, Non-tender, No pedal edema Musculoskeletal : Extremity Location: Back (No gross abnormality. No midline tenderness. No bony step-offs on palpation. Localized TTP to the left paraspinal region. Neurovascular sensation intact) Apperance: Normal Neurologic: Alert, food service team member II-XII nml as Tested, No Motor Deficits, Normal Affect, Normal Mood, No Sensory Deficits Cerebellar Function: Normal Reflexes: Normal Skin: Dry, Normal Color, Warm Lymphatic: No Adenopathy Was a procedure done? Was a procedure done?: No Differential Dx Considerations may include: Strain, Fracture herniated disc X-Ray, Labs, Meds, VS Vital Signs Date Time Temp Pulse Resp B/P (MAP) Pulse Ox O2 Delivery O2 Flow Rate FiO2 10/13/24 07:26 98.7 86 18 162/79 (106) 99 98.7 Current Medications Medications (Trade) Dose Ordered Sig/Aleida Route Start Time Stop Time Status Last Admin Ketorolac Tromethamine (Toradol Injection) 60 mg ONCE ONCE IM 10/13/24 08:30 10/13/24 08:31 DC 10/13/24 08:44 PATIENT: NICKIE WEBSTER AACCT: [id number]: [id number] : 1960 LOC: ER ROOM / BED: / AGE / SEX: 64 / F ADM STATUS: REG ER SERVICE 7 ORDERING PHYSICIAN: WILNER SIN NP PROCEDURE(s): LUMB2 - LUMBAR SPINE 3 VIEW REASON: Fall/rule out fracture ORDER NUMBER(s): [id number], ACCESSION NUMBER(s): [id number] INDICATION: Trauma COMPARISON: None TECHNIQUE: 3 views of the lumbar spine were obtained. FINDINGS: The lumbar vertebral alignment is normal. The intervertebral disc spaces are well-maintained. No significant facet arthropathy is noted. No acute fracture, vertebral compression deformity or aggressive osseous lesions. The paravertebral soft tissues are grossly unremarkable. IMPRESSION: No acute fracture. ATED BY: IGNACIO SALEH MD DICTATED DATE/TIME: 10/13/24905 SIGNED BY: IGNACIO SALEH MD SIGNED DATE/TIME: 10/13/24905 CC: X-Ray, Labs, Meds, VS Comment 64-year-old female presents with a chief complaint of lower back pain x s/p fall on Saturday. Patient arrives alert and oriented, ABC's intact, afebrile, vital signs stable, saturating well in room air Diagnostic imaging ordered by me and results interpreted by radiology : Lumbar x-ray negative. No acute findings Patient was given: Toradol 60 mg IV. Tolerated medications with no adverse reaction. I considered cauda equina, spinal cord compression, vertebral malignancy/mets, acute spinal fracture, vertebral osteomyelitis, epidural abscess, infected or obstructed kidney stone, however this is less likely as the patient does not present with lower back pain red flags symptoms such as bowel or bladder dysfunction, saddle anesthesia, paresthesia, and without any history of malignancy or recent back trauma or spinal interventions. Therefore further imaging studies such as a lumbar MRI were not indicated on today's visit. Presentation most consistent with nonemergent musculoskeletal etiology versus nonemergent disc herniation. Disposition: Discharge. Strict return precautions discussed with the patient with full understanding. Supportive care advised (rest, ice, heat, NSAIDs, stretching exercises) Massage muscles with cold pack or ice for 20 minutes 4 times per day. Usually most useful if there is swelling during the first 48 hours Heating pad on the most painful area for 20 minutes to relieve muscle spasm Sleep and the most comfortable sleeping position (usually on the side with knees bent) Light stretching, no strenuous activity, avoid frequent bending, avoid carrying heavy objects Discussed possible benefits of yoga and acupuncture Return precautions discussed including Inability to walk/bear weight Paresthesia/weakness/leg pain Fecal/urinary incontinence Any worsening symptoms Additional MDM Review of External, Non-ED records: External records reviewed. Discussion with independent historian (EMS, family) history obtained from the patient/parents (if applicable) at bedside Chronic conditions affecting care: None Social determinants of health affecting care: None Consideration of admission (observation or admission): I considered escalation of care to admission for this patient, however given the reassuring workup, the patient is safe for outpatient management. Time of 1ST Reevaluation: 08:48 Reevaluation 1ST: Unchanged Time of 2ND Reevaluation: 09:18 Reevaluation 2ND: Improved Patient Education/Counseling: Diagnosis, Treatment, Prognosis Family Education/Counseling: No Family Present SEPSIS Sepsis Screen Date sepsis recognized/suspect: Oct 13, 2024 Time Sepsis recognized/suspect: 725 Recent Procedure: No On Antibiotic Therapy: No Respiratory Rate >20: No Heart Rate >90: No Temp<36 C (96.8 F) or >38.3 C: No SBP <90 or MAP <65 mmHG: No New Acute Mental Status Change: No Is the patient on CPAP, BIPAP,: No Physician Orders Lumbar Spine 3 View (10/13/24 08:28) Vital Signs Date Time Temp Pulse Resp B/P (MAP) Pulse Ox O2 Delivery O2 Flow Rate FiO2 10/13/24 07:26 98.7 86 18 162/79 (106) 99 98.7 Medications Medications Dose Ordered Sig/Aleida Route Start Time Stop Time Status Last Admin Dose Admin Ketorolac Tromethamine 60 mg ONCE ONCE IM 10/13/24 08:30 10/13/24 08:31 DC 10/13/24 08:44 Departure 1 Departure Time of Disposition: 09:22 Impression: Primary Impression: Back pain Qualified Codes: M54.50 - Low back pain, unspecified Additional Impression: Fall Qualified Codes: W19.XXXA - Unspecified fall, initial encounter Disposition: HOME / SELF CARE / HOMELESS Condition: Stable e-Prescriptions Naproxen (Naproxen) 500 Mg Tab 500 MG PO BIDPC for 10 Days, #20 TAB 0 Refills Prov: WILNER SIN OCCUPATIONAL PHYSICIAN 10/13/24 Cyclobenzaprine Hcl (Cyclobenzaprine Hcl) 5 Mg Tab 1 TAB PO QHSP PRN for 14 Days, #14 TAB 0 Refills Prov: WILNER SIN OCCUPATIONAL PHYSICIAN 10/13/24 Critical Care Note Critical Care Time?: No Stability Stability form required: No Heart Score Heart Score: Heart Score Response (Comments) Value History N/A 0 EKG N/A 0 Age N/A 0 Risk Factors N/A 0 Troponin N/A 0 Total 0 I personally scribed for WILNER SIN NP ([email or web address]) on 10/13/24 at 09:10. Electronically submitted by Jeffery Mcghee ([email or web address]). WILNER SIN NP Oct 13, 2024 09:10
[2024-10-13] MEDS ORDERED: NAPR-746 PO (09:23)
[2024-10-13] MEDS ORDERED: CYCL-837 PO (09:23)
[2024-10-13 09:29] VITALS: BP 152/74; PULSE 84; RESP 16; TEMP 98.2; O2SAT 98
== END 2024-10-13 09:31 | disposition home or self-care (01) ==
LOC: ER 07:20
DX: M54.50 Low back pain, unspecified (principal); I10 Essential (primary) hypertension; F41.9 Anxiety disorder, unspecified; F32.A Depression, unspecified; M19.90 Unspecified osteoarthritis, unspecified site; Z79.899 Other long term (current) drug therapy; Z90.49 Acquired absence of other specified parts of digestive tract; Z98.890 Other specified postprocedural states; W18.39XA Other fall on same level, initial encounter; Y93.89 Activity, other specified; Y92.89 Other specified places as the place of occurrence of the external cause; Y99.8 Other external cause status
CPT/HCPCS: 72100; 96372; 99283; J1885

== ENCOUNTER 2024-12-03 07:16 | Emergency (ER) | payer MEDICARE, MEDICAID ==
[~2024-12-03] VITALS: Ht 149.9 cm; Wt 113.5 kg
[~2024-12-03 07:16] MED LIST changes: +CYCL-837 PO; +NAPR-746 PO
[2024-12-03 07:18] VITALS: BP 147/74; PULSE 85; RESP 16; TEMP 97.7; O2SAT 99
--- NOTE | 2024-12-03 07:35 | ED.PDOC ---
History of Present Illness HPI Comments A 64 YEAR OLD FEMALE PRESENTS TO THE ED WITH COMPLAINT OF MEDICATION REFILL AND VAGINAL LUMP. PATIENT STATES SHE NEEDS A MEDICATION REFILL FOR HER HYPERTENSION AND PAIN MEDICINE. PATIENT REPORTS SHE TAKES LOSARTAN 50MG AND IBUPROFEN 800MG, BUT RAN OUT OF THIS MEDICATION AND WOULD LIKE A REFILL. PATIENT HAS HAS ALSO HAD A PAINFUL ON HER RIGHT VAGINAL LABIA FOR THE PAST 2 DAYS THAT SHE WOULD LIKE EVALUATED. PATIENT DENIES FEVER, CHILLS, SHORTNESS OF BREATH, CHEST PAIN, ABDOMINAL PAIN, NAUSEA, VOMITING, HEADACHE, OR OTHER COMPLAINTS. NO OTHER SYMPTOMS OR MODIFYING FACTORS AT THIS TIME. PATIENT IS ALERT, ORIENTED X 4, AND HAS STEADY GAIT. Chief Complaint: Abscess Time Seen by MD: 07:18 Primary Care Provider: NONE Reviewed Notes: Nurses Notes, Medications, Allergies Allergies: Coded Allergies: NO KNOWN ALLERGIES (Unverified , 12/28/21) Home Meds Active Scripts Losartan Potassium (Losartan Potassium) 50 Mg Tab, 1 TAB PO DAILY, #90 TAB Prov:ZACHARY HOBBS 12/03/24 Ibuprofen (Ibuprofen) 800 Mg Tab, 1 TAB PO TID, #30 TAB Prov:ZACHARY HOBBS 12/03/24 Cephalexin Monohydrate (Cephalexin) 500 Mg Cap, 1 CAP PO QID, #40 CAP Prov:ZACHARY HOBBS 12/03/24 Naproxen (Naproxen) 500 Mg Tab, 500 MG PO BIDPC for 10 Days, #20 TAB 0 Refills Prov:WILNER SIN CITY DESIGNER 10/13/24 Cyclobenzaprine Hcl (Cyclobenzaprine Hcl) 5 Mg Tab, 1 TAB PO QHSP PRN for 14 Days, #14 TAB 0 Refills Prov:WILNER SIN CITY DESIGNER 10/13/24 Albuterol Sulfate (Albuterol Sulfate Hfa) 108 Mcg/Act Aer, 108 MCG IN TID, #120 AER Prov:ZACHARY HOBBS 04/24/24 Promethazine-Dm (Promethazine Dm 6.25-15 mg/5Ml) 1 Ivy Ivy, 5 ML PO TID, #180 ML Prov:ZACHARY HOBBS 04/24/24 Azithromycin (Azithromycin) 500 Mg Tab, 1 TAB PO DAILY, #5 TAB Prov:ZACHARY HOBBS 04/24/24 Simvastatin (Simvastatin) 20 Mg Tab, 1 TAB PO QPM, #90 TAB 1 Refill Prov:LUDIN HAHN 07/03/23 Ibuprofen (Ibuprofen) 800 Mg Tab, 1 TAB PO TID, #90 TAB Prov:LUDIN HAHNP 07/03/23 Losartan Potassium (Losartan Potassium) 50 Mg Tab, 1 TAB PO DAILY, #90 TAB 5 Refills Prov:LUDIN HAHN 07/03/23 Ibuprofen Micronized (Ibuprofen) 600 Mg Tab, 600 MG PO TIDPRN PRN for 30 Days, #90 TAB 0 Refills Prov:JANUARYWILNER FOURNIER CITY DESIGNER 04/30/23 Losartan Potassium (Losartan Potassium) 50 Mg Tab, 1 TAB PO DAILY for 60 Days, #60 TAB 0 Refills Prov:JANUARYROCIO FOURNIERStefan Lindsey CITY DESIGNER 04/30/23 Losartan Potassium (Losartan Potassium) 50 Mg Tab, 1 TAB PO DAILY, #30 TAB Prov:ZACHARY HOBBS 03/28/23 Ibuprofen (Ibuprofen) 800 Mg Tab, 1 TAB PO TID, #30 TAB Prov:ZACHARY HOBBS 03/28/23 Dextromethorphan-Guaifenesin (Diabetic Tussin Dm) Dm Liq, 10 ML OR Q6HPRN PRN for 7 Days, #280 ML 0 Refills Prov:JANUARYWILNER F CITY DESIGNER 02/26/23 Benzonatate (Benzonatate) 100 Mg Cap, 100 MG PO BIDP PRN for 14 Days, #28 CAP 0 Refills Prov:JANUARYWILNERStefan Lindsey NP 02/26/23 Simvastatin (Simvastatin) 20 Mg Tab, 1 TAB PO QPM for 30 Days, #30 TAB 0 Refills Prov:JANUARYWILNER F CITY DESIGNER 02/26/23 Losartan Potassium (Losartan Potassium) 50 Mg Tab, 1 TAB PO DAILY, #30 TAB 0 Refills Prov:JANUARYWILNERStefan Lindsey NP 02/26/23 Ibuprofen Micronized (Ibuprofen) 800 Mg Tab, 800 MG PO TID PRN, #30 TAB Prov:LUDIN HAHN 12/28/21 Sulfamethoxazole W/Trimethopri (Bactrim Ds Tablet) 1 Tab Tb, 1 TAB PO BID for 10 Days, #20 TAB Prov:LUDIN HAHN 12/28/21 Hydrocodone-Acetaminophen (Hydrocodone Bitartrate/AC 5-325 mg) 1 Tab Tab, 1 TAB PO [id number] PRN for 5 Days, #10 TAB Prov:CEE FERREIRA DO 05/17/21 Information Source: Patient Mode of Arrival: Ambulatory Severity: Mild Timing: Days Duration: Since onset, Days Prehospital treatment: None Medication Refill: For: Other (MEDICATION REFILL AND LUMP OF RIGHT VAGINAL LABIA) Past Medical History PAST MEDICAL HISTORY: Anxiety, Arthritis, Depression, HTN Surgical History: Cholecystectomy, Hernia Repair ELECTRICITY TRADER History: No Pertinent ELECTRICITY TRADER History Family History Family History: Reviewed,noncontributory to illness Social History Smoker: Non-Smoker Alcohol: Denies ETOH Use Drugs: Denies Drug Use Lives In: Home Constitutional: denies: chills, diaphoresis, fatigue, fever, malaise, sweats, weakness, others EENTM: denies: blurred vision, double vision, ear bleeding, ear discharge, ear drainage, ear pain, ear ringing, eye pain, eye redness, hearing loss, mouth pain, mouth swelling, nasal discharge, nose bleeding, nose congestion, nose pain, photophobia, tearing, throat pain, throat swelling, voice changes, others Respiratory: denies: cough, hemoptysis, orthopnea, SOB at rest, shortness of breath, SOB with excertion, stridor, wheezing, others Cardiovascular: denies: chest pain, dizzy spells, diaphoresis, Dyspnea on exertion, edema, irregular heart beat, left arm pain, lightheadedness, palpitations, PND, syncope, others Gastrointestinal: denies: abdomen distended, abdominal pain, blood streaked bowels, constipated, diarrhea, dysphagia, difficulty swallowing, hematemesis, melena, nausea, poor appetite, poor fluid intake, rectal bleeding, rectal pain, vomiting, others Genitourinary: denies: abnormal vagina bleeding, burning, dyspareunia, dysuria, flank pain, frequency, hematuria, incontinence, pain, , vagina discharge, urgency, others Neurological: denies: dizziness, fainting, headache, left sided numbness, left sided weakness, numbness, paresthesia, pre-existing deficit, right sided numbness, right sided weakness, seizure, speech problems, tingling, tremors, weakness, others Musculoskeletal: denies: back pain, gout, joint pain, joint swelling, muscle pain, muscle stiffness, neck pain, others Integumetry: reports: lumps (LUMP OF RIGHT VAGINAL LABIA); denies: bruises, change in color, change in hair/nails, dryness, laceration, lesions, rash, wounds, others Allergic/Immunocompromised: denies: Difficulty Healing, Frequent Infections, Hives, Itching, others Hematologic/Lymphatic: denies: anemia, blood clots, easy bleeding, easy bruising, swollen glands, others Endocrine: denies: excessive hunger, excessive sweating, excessive thirst, excessive urination, flushing, intolerance to cold, intolerance to heat, unexplained weight gain, unexplained weight loss, others Psychiatric: denies: anxiety, bipolar disorder, depression, hopeless, panic disorder, schizophrenia, sleepless, suicidal, others All Other Systems: Reviewed and Negative Physical Exam General Appearance: No Apparent Distress, Normal HEENT: Normal ENT Inspection, PERRL/EOMI, Pharynx Normal, TMs Normal Neck: Full Range of Motion, Non-Tender, Normal, Normal Inspection Respiratory: Chest Non-Tender, Lungs Clear, No Accessory Muscle Use, No Respiratory Distress, Normal Breath Sounds Cardiovascular: No Edema, No JVD, No Murmur, No Gallop, Normal Peripheral Pulses, Regular Rate/Rhythm Breast Exam: Deferred Gastrointestinal: No Organomegaly, Non Tender, No Pulsatile Mass, Normal Bowel Sounds, Soft Genitalia: Deferred Pelvic: Other (A RED BUMP WITH TENDERNESS AND HARDNESS ON LEFT VAGINAL LABIA. ) Rectal: Deferred Extremities: No calf tenderness, Normal capillary refill, Normal inspection, Normal range of motion, Non-tender, No pedal edema Musculoskeletal : Apperance: Normal Neurologic: Alert, pastrycook II-XII nml as Tested, No Motor Deficits, Normal Affect, Normal Mood, No Sensory Deficits Cerebellar Function: Normal Reflexes: Normal Skin: Dry, Warm, Other (A BUMP WITH LOCALIZED REDNESS, HARDNESS AND TENDERNESS ON RIGHT VAGINAL LABIA, NO OPEN WOUND SEEN. FOLLICULITIS OF RIGHT VAGINAL LABIA. ) Peripheral Pulses: 2+ carotid (R), 2+ carotid (L) Lymphatic: No Adenopathy Was a procedure done? Was a procedure done?: No Differential Dx Considerations may include: FOLLICULITIS, CYST, BARTHOLIN ABSCESS, MEDICATION REFILL, HISTORY OF HYPERTENSION X-Ray, Labs, Meds, VS Vital Signs Date Time Temp Pulse Resp B/P (MAP) Pulse Ox O2 Delivery O2 Flow Rate FiO2 12/03/24 07:18 97.7 85 16 147/74 99 97.7 X-Ray, Labs, Meds, VS Comment EXTERNAL MEDICAL RECORDS REVIEWED: [NONE] INDEPENDENT HISTORIANS: [NONE] SOCIAL DETERMINANTS OF HEALTH: [NONE] LABS ORDERED: NONE REVIEWED AND INTERPRETED RESULTS: NONE IMAGING ORDERED: NONE TREATMENTS ORDERED: NONE PROCEDURES PERFORMED: NONE CRITICAL CARE TIME: NONE I HAVE DISCUSSED THE PATIENT WITH THE ATTENDING PHYSICIAN DR. KIKI CLEARY AND SHE AGREES WITH THE PATIENT'S PLAN OF CARE AND DISPOSITION. BASED ON HISTORY OF PRESENT ILLNESS, AND PHYSICAL EXAM, PATIENT WILL BE DISCHARGED HOME. DISCUSSED PLAN FOR DISCHARGE HOME WITH RX [KEFLEX, LOSARTAN 50MG QD, AND IBUPROFEN 800MG]. MEDICATION WARNINGS GIVEN. SHARED DECISION MAKING: PATIENT INSTRUCTED TO FOLLOW UP WITH PRIMARY CARE PROVIDER IN 1-2 DAYS FOR RE-EVALUATION OF SYMPTOMS. PATIENT VERBALIZES UNDERSTANDING TO RETURN TO ED FOR NEW OR WORSENING SYMPTOMS OR IF FOLLOW UP WITH PCP CANNOT BE OBTAINED. PATIENT FEELS COMFORTABLE GOING HOME AT THIS TIME. ALL QUESTIONS ADDRESSED AT TIME OF DISCHARGE. Time of 1ST Reevaluation: 08:00 Reevaluation 1ST: Improved Patient Education/Counseling: Diagnosis, Treatment, Need For Follow Up Family Education/Counseling: Diagnosis, Treatment, Need For Follow Up Medical Screening: No EMC Exist At This Time SEPSIS Sepsis Screen Date sepsis recognized/suspect: Dec 03, 2024 Time Sepsis recognized/suspect: 718 Recent Procedure: No On Antibiotic Therapy: No Respiratory Rate >20: No Heart Rate >90: No Temp<36 C (96.8 F) or >38.3 C: No SBP <90 or MAP <65 mmHG: No New Acute Mental Status Change: No Is the patient on CPAP, BIPAP,: No Vital Signs Date Time Temp Pulse Resp B/P (MAP) Pulse Ox O2 Delivery O2 Flow Rate FiO2 12/03/24 07:18 97.7 85 16 147/74 99 97.7 Departure 1 Departure Time of Disposition: 08:00 Impression: Primary Impression: Folliculitis Additional Impression: Encounter for medication refill Disposition: HOME / SELF CARE / HOMELESS Condition: Stable Additional Instructions: FOLLOW-UP WITH PCP IN 1 TO 2 DAYS. TAKE MEDICATIONS PRESCRIBED. RETURN TO ED FOR ANY NEW OR WORSENING SYMPTOMS. e-Prescriptions Losartan Potassium (Losartan Potassium) 50 Mg Tab 1 TAB PO DAILY, #90 TAB Prov: ZACHARY HOBBS 12/03/24 Ibuprofen (Ibuprofen) 800 Mg Tab 1 TAB PO TID, #30 TAB Prov: ZACHARY HOBBS 12/03/24 Cephalexin Monohydrate (Cephalexin) 500 Mg Cap 1 CAP PO QID, #40 CAP Prov: ZACHARY HOBBS 12/03/24 Discharged With: Self Critical Care Note Critical Care Time?: No Stability Stability form required: No I personally scribed for ZACHARY HOBBS ([email or web address]) on 12/03/24 at 07:35. Electronically submitted by Luis Angel Collins ([email or web address]). ZACHARY HOBBS Dec 03, 2024 07:35
[2024-12-03] MEDS ORDERED: CEPH500C PO (07:38)
== END 2024-12-03 07:46 | disposition home or self-care (01) ==
LOC: ER 07:16
DX: L73.9 Follicular disorder, unspecified (principal); Z90.49 Acquired absence of other specified parts of digestive tract; Z79.899 Other long term (current) drug therapy; Z76.0 Encounter for issue of repeat prescription

== ENCOUNTER 2025-03-15 07:26 | Emergency (ER) | payer MEDICARE, MEDICAID ==
[~2025-03-15] VITALS: Ht 149.9 cm; Wt 117.9 kg
[~2025-03-15 07:26] MED LIST changes: +CEPH500C PO
--- NOTE | 2025-03-15 08:11 | ED.PDOC ---
Musculoskeletal HPI Comments This is a 64 year old female presenting to the ED with chief complaint of right groin pain. Patient reports that she has been experiencing right sided groin pain with associated radiation of pain down her right leg for the past 5 days. Patient relays that her pain started spontaneously without any injury or fall. Patient states that her pain is worsened with walking and extension of her right leg. Patient also requests refill of her blood pressure medication. Patient notes taking Ibuprofen for relief. Patient denies any numbness, weakness, tingling, fall, or injury. Able to bear weight on the leg Denies trauma to the leg or recent fall Denies skin color changes around the groin Denies masses around the groin Denies fever chills night sweats nausea vomiting Chief Complaint: Lower Extremity Time Seen by MD: 08:08 Primary Care Provider: NONE Reviewed Notes: Nurses Notes, Medications, Allergies Allergies: Coded Allergies: NO KNOWN ALLERGIES (Unverified , 12/28/21) Home Meds Active Scripts Ibuprofen (Ibuprofen) 800 Mg Tab, 1 TAB PO TID, #90 TAB Prov:WILNER SIN NP 03/15/25 Losartan Potassium (Losartan Potassium) 50 Mg Tab, 1 TAB PO DAILY, #30 TAB Prov:WILNER SIN NP 03/15/25 Losartan Potassium (Losartan Potassium) 50 Mg Tab, 1 TAB PO DAILY, #90 TAB Prov:ZACHARY HOBBS 12/03/24 Ibuprofen (Ibuprofen) 800 Mg Tab, 1 TAB PO TID, #30 TAB Prov:ZACHARY HOBBS 12/03/24 Cephalexin Monohydrate (Cephalexin) 500 Mg Cap, 1 CAP PO QID, #40 CAP Prov:ZACHARY HOBBS 12/03/24 Naproxen (Naproxen) 500 Mg Tab, 500 MG PO BIDPC for 10 Days, #20 TAB 0 Refills Prov:WILNER SIN NP 10/13/24 Cyclobenzaprine Hcl (Cyclobenzaprine Hcl) 5 Mg Tab, 1 TAB PO QHSP PRN for 14 Days, #14 TAB 0 Refills Prov:WILNER SIN NP 10/13/24 Albuterol Sulfate (Albuterol Sulfate Hfa) 108 Mcg/Act Aer, 108 MCG IN TID, #120 AER Prov:ZACHARY HOBBS 04/24/24 Promethazine-Dm (Promethazine Dm 6.25-15 mg/5Ml) 1 Ivy Ivy, 5 ML PO TID, #180 ML Prov:ANJEL,KAYLIEERIC FIELDS 04/24/24 Azithromycin (Azithromycin) 500 Mg Tab, 1 TAB PO DAILY, #5 TAB Prov:ANJEL,ANIKASteffany FIELDS 04/24/24 Simvastatin (Simvastatin) 20 Mg Tab, 1 TAB PO QPM, #90 TAB 1 Refill Prov:LUDIN ORELLANAP 07/03/23 Losartan Potassium (Losartan Potassium) 50 Mg Tab, 1 TAB PO DAILY, #90 TAB 5 Refills Prov:LUDIN ORELLANAP 07/03/23 Ibuprofen Micronized (Ibuprofen) 600 Mg Tab, 600 MG PO TIDPRN PRN for 30 Days, #90 TAB 0 Refills Prov:WILNER SIN NP 04/30/23 Losartan Potassium (Losartan Potassium) 50 Mg Tab, 1 TAB PO DAILY for 60 Days, #60 TAB 0 Refills Prov:WILNER SIN NP 04/30/23 Ibuprofen (Ibuprofen) 800 Mg Tab, 1 TAB PO TID, #30 TAB Prov:ANJELKAYLIEERIC FIELDS 03/28/23 Dextromethorphan-Guaifenesin (Diabetic Tussin Dm) Dm Liq, 10 ML OR Q6HPRN PRN for 7 Days, #280 ML 0 Refills Prov:WILNER SIN NP 02/26/23 Benzonatate (Benzonatate) 100 Mg Cap, 100 MG PO BIDP PRN for 14 Days, #28 CAP 0 Refills Prov:WILNER SIN NP 02/26/23 Simvastatin (Simvastatin) 20 Mg Tab, 1 TAB PO QPM for 30 Days, #30 TAB 0 Refills Prov:WILNER SIN NP 02/26/23 Losartan Potassium (Losartan Potassium) 50 Mg Tab, 1 TAB PO DAILY, #30 TAB 0 Refills Prov:WILNER SIN NP 02/26/23 Ibuprofen Micronized (Ibuprofen) 800 Mg Tab, 800 MG PO TID PRN, #30 TAB Prov:LUDIN ORELLANA 12/28/21 Sulfamethoxazole W/Trimethopri (Bactrim Ds Tablet) 1 Tab Tb, 1 TAB PO BID for 10 Days, #20 TAB Prov:LUDIN ORELLANA MARTIR 12/28/21 Hydrocodone-Acetaminophen (Hydrocodone Bitartrate/AC 5-325 mg) 1 Tab Tab, 1 TAB PO [id number] PRN for 5 Days, #10 TAB Prov:CEE FERREIRA 05/17/21 Information Source: Patient Mode of Arrival: Ambulatory Location: Right Extremity Location: Groin Timing: Days Prehospital treatment: None Severity: Mild Able to Move Extremity: Yes Bear Weight: Fully Pain: Mild Mechanism: Spontaneous Circumstances: Spontaneous Onset of Symptoms: Spontaneous Symptoms: Pain DVT Risk Factors: NONE Last Tetanus: Unknown Past Medical History PAST MEDICAL HISTORY: Anxiety, Arthritis, Depression, HTN Surgical History: Cholecystectomy, Hernia Repair [employer] History: No Pertinent [employer] History Family History Family History: Reviewed,noncontributory to illness Social History Smoker: Non-Smoker Alcohol: Denies ETOH Use Drugs: Denies Drug Use Lives In: Home Constitutional: denies: chills, diaphoresis, fatigue, fever, malaise, sweats, weakness, others EENTM: denies: blurred vision, double vision, ear bleeding, ear discharge, ear drainage, ear pain, ear ringing, eye pain, eye redness, hearing loss, mouth pain, mouth swelling, nasal discharge, nose bleeding, nose congestion, nose pain, photophobia, tearing, throat pain, throat swelling, voice changes, others Respiratory: denies: cough, hemoptysis, orthopnea, SOB at rest, shortness of breath, SOB with excertion, stridor, wheezing, others Cardiovascular: denies: chest pain, dizzy spells, diaphoresis, Dyspnea on exertion, edema, irregular heart beat, left arm pain, lightheadedness, palpitations, PND, syncope, others Gastrointestinal: denies: abdomen distended, abdominal pain, blood streaked bowels, constipated, diarrhea, dysphagia, difficulty swallowing, hematemesis, melena, nausea, poor appetite, poor fluid intake, rectal bleeding, rectal pain, vomiting, others Genitourinary: denies: abnormal vagina bleeding, burning, dyspareunia, dysuria, flank pain, frequency, hematuria, incontinence, pain, , vagina discharge, urgency, others Neurological: denies: dizziness, fainting, headache, left sided numbness, left sided weakness, numbness, paresthesia, pre-existing deficit, right sided numbness, right sided weakness, seizure, speech problems, tingling, tremors, wea kness, others Musculoskeletal: reports: others (Rt groin pain); denies: back pain, gout, joint pain, joint swelling, muscle pain, muscle stiffness, neck pain Integumetry: denies: bruises, change in color, change in hair/nails, dryness, laceration, lesions, lumps, rash, wounds, others Allergic/Immunocompromised: denies: Difficulty Healing, Frequent Infections, Hives, Itching, others Hematologic/Lymphatic: denies: anemia, blood clots, easy bleeding, easy bruising, swollen glands, others Endocrine: denies: excessive hunger, excessive sweating, excessive thirst, excessive urination, flushing, intolerance to cold, intolerance to heat, unexplained weight gain, unexplained weight loss, others Psychiatric: denies: anxiety, bipolar disorder, depression, hopeless, panic disorder, schizophrenia, sleepless, suicidal, others All Other Systems: Reviewed and Negative Physical Exam General Appearance: Normal HEENT: Normal ENT Inspection, Pharynx Normal, TMs Normal Neck: Full Range of Motion, Non-Tender, Normal, Normal Inspection Respiratory: Chest Non-Tender, Lungs Clear, No Accessory Muscle Use, No Respiratory Distress, Normal Breath Sounds Cardiovascular: No Edema, No JVD, No Murmur, No Gallop, Normal Peripheral Pulses, Regular Rate/Rhythm Breast Exam: Deferred Gastrointestinal: No Organomegaly, Non Tender, No Pulsatile Mass, Normal Bowel Sounds, Soft Genitalia: Deferred Pelvic: Deferred Rectal: Deferred Extremities: No calf tenderness, Normal capillary refill, Normal inspection, Normal range of motion, Non-tender, No pedal edema Musculoskeletal : Location: Right Extremity Location: Leg Apperance: Tenderness (Pain with flexion/extension to right leg, neuro vascularly intact) Neurologic: Alert, No Motor Deficits, Normal Affect, Normal Mood Cerebellar Function: NOT DONE Reflexes: NOT DONE Skin: Dry, Normal Color, Warm Lymphatic: NOT DONE Was a procedure done? Was a procedure done?: No Differential Diagnosis EXT Differential Diagnosis: Sprain, Strain X-Ray, Labs, Meds, VS Vital Signs Date Time Temp Pulse Resp B/P (MAP) Pulse Ox O2 Delivery O2 Flow Rate FiO2 03/15/25 08:24 63 17 100 Room Air 03/15/25 08:24 98.7 63 17 136/74 (94) 100 98.7 03/15/25 07:32 98.6 65 17 132/76 100 98.6 X-Ray, Labs, Meds, VS Comment This is a 64 year old female presenting to the ED with chief complaint of right groin pain. Patient arrives alert and oriented, ABC's intact, afebrile, vital signs stable, saturating well in room air History and examination consistent w/ MSK injury There are no signs of arterial or nerve damage. The patient is neurovascularly intact Take IBU or OTC Tylenol w/ food as needed for pain Recommended heat therapy Reviewed RICE management Avoid heavy lifting or strenuous activity Recommended range of motion exercises and limit heavy activity for 1 week If no improvement advised patient to return to the emergency department for follow-up. Inform patient of their elevated blood pressure Medication was refilled on today's visit Today discussed importance of regular exercise Sodium restriction DASH diet Limit or illuminate alcohol intake Patient verbalized understanding Follow-up with PCP Additional MDM Review of External, Non-ED records: External records reviewed. Discussion with independent historian, history obtained from the patient/parents (if applicable) at bedside Chronic conditions affecting care: None Social determinants of health affecting care: None Consideration of admission (observation or admission): I considered escalation of care to admission for this patient, however given the reassuring workup, the patient is safe for outpatient management. Discussion with the Radiology: No Tests considered but not performed: None Prescription medication considered but not given: None Time of 1ST Reevaluation: 08:25 Reevaluation 1ST: Improved Patient Education/Counseling: Diagnosis, Treatment Family Education/Counseling: No Family Present Departure 1 Departure Time of Disposition: 08:19 Impression: Primary Impression: Hypertension Qualified Codes: I10 - Essential (primary) hypertension Additional Impression: Strain of right inguinal muscle Qualified Codes: S39.013A - Strain of muscle, fascia and tendon of pelvis, initial encounter Disposition: HOME / SELF CARE / HOMELESS Condition: Stable Additional Instructions: On reevaluation, patient had symptomatic improvement. Patient is stable for discharge at this time. External notes reviewed. Test results and diagnostic imaging interpreted. All diagnostic findings, discharge care, education and instructions provided Follow-up with PCP in 2 to 3 days Patient verbalized understanding and agreed to treatment plan Vital signs stable, afebrile, no acute distress noted Patient ambulatory with strong steady gait Advised to return precautions for any new or worsening symptoms, return to ER immediately for re-evaluation Patient is aware that the purpose of this visit was for an acute medical emergency requiring emergent stabilization. Chronic conditions, including malignancies have not been ruled out. Patient is instructed to follow up with PCP as directed and discharge instructions for continued care and workup. If unable to arrange follow-up, patient is to return to the emergency department for reassessment. Patient (parent or legal guardian if applicable) was given verbal and written discharge instructions and acknowledges understanding. e-Prescriptions Ibuprofen (Ibuprofen) 800 Mg Tab 1 TAB PO TID, #90 TAB Prov: WILNER SIN NP 03/15/25 Losartan Potassium (Losartan Potassium) 50 Mg Tab 1 TAB PO DAILY, #30 TAB Prov: WILNER SIN NP 03/15/25 Discharged With: Self Critical Care Note Critical Care Time?: No Stability Stability form required: No Heart Score Heart Score: Heart Score Response (Comments) Value History N/A 0 EKG N/A 0 Age N/A 0 Risk Factors N/A 0 Troponin N/A 0 Total 0 I personally scribed for WILNER SIN COMMUNICATION INSTRUCTOR ([email or web address]) on 03/15/25 at 08:11. Electronically submitted by Darrick Rashid ([email or web address]). I personally scribed for WILNER SIN COMMUNICATION INSTRUCTOR ([email or web address]) on 03/15/25 at 08:20. Electronically submitted by Darrick Rashid ([email or web address]). WILNER SIN NP Mar 15, 2025 08:11
[2025-03-15] MEDS ORDERED: IBUP-1456 PO (08:18)
[2025-03-15 08:24] VITALS: BP 136/74; PULSE 63; RESP 17; TEMP 98.7; O2SAT 100
== END 2025-03-15 08:26 | disposition home or self-care (01) ==
LOC: ER 07:26
DX: S39.011A Strain of muscle, fascia and tendon of abdomen, initial encounter (principal); I10 Essential (primary) hypertension; M19.90 Unspecified osteoarthritis, unspecified site; F41.9 Anxiety disorder, unspecified; F32.A Depression, unspecified; Z79.899 Other long term (current) drug therapy; Z90.49 Acquired absence of other specified parts of digestive tract; Z98.890 Other specified postprocedural states; W18.39XA Other fall on same level, initial encounter; Y93.89 Activity, other specified; Y92.89 Other specified places as the place of occurrence of the external cause; Y99.8 Other external cause status